=== PATIENT | male | born 1965 | race African-American/Black ===

== ENCOUNTER 2023-07-16 12:28 | Emergency (ER) | payer MEDICARE, MEDICAID, SELFPAY ==
[2023-07-16 12:29] VITALS: BP 116/99; PULSE 75; RESP 18; TEMP 36.3; O2SAT 100; BMI 30.5
--- NOTE | 2023-07-16 12:56 | EX.ED.UPPERE ---
HPI History of Present Illness HPI Narrative: Patient presents with right hand pain and that has been getting worse over the past several months. Patient denies any trauma or injury. Patient states his pain is constant but waxes and wanes. Patient states it is mainly over the second and fifth MCP joints of his right hand. Patient describes the pain as sharp. Patient states nothing makes it better nothing makes it worse. Patient denies any paresthesias or weakness. Chief Complaint: Upper Extremity Injury Informant: patient Onset/Context/Timing Onset: Month(s) Context: Gradual Onset Timing: Continuous and Waxes and wanes Quality of Pain: Sharp Location: Right hand, second and fifth MCP joints Worsened by: Nothing Relieved by: Nothing Associated Symptoms Associated Symptoms: Negative for Parasthesia, Weakness or Loss of Funtion PFSH PFSH Medical History (Updated 07/16/23 @ 13:[address] Dajuan Danielle DO) Arthritis Diabetic neuropathy Gout Occasional tremors Parkinsons disease Type 2 diabetes mellitus Home Medications hydrocodone-acetaminophen 5-325mg 5mg-325mg 1 tab PO Q6H PRN PRN Pain 3 days #10 TABLETS 07/16/23 [Rx Last Taken Unknown] Allergy/AdvReac Type Severity Reaction Status Date / Time lactose AdvReac Intermediate Upset Verified 07/16/23 12:32 Stomach prochlorperazine AdvReac Intermediate Chest Verified 07/16/23 12:32 [From Compazine] tightness sumatriptan [From Imitrex] AdvReac Intermediate Nausea/Vom/ Verified 07/16/23 12:32 Diarrhea Surgical History Hx of appendectomy Social History Smoking Status: Never smoker ROS ROS ED Constitutional Constitutional ED: Denies chills or fever(s) Eyes Eyes: Denies blurry vision or change in vision ENT ENT ED: Denies rhinorrhea or sore throat Cardiovascular Cardiovascular: Denies chest pain or palpitations Respiratory/Chest Respiratory/Chest: Denies cough or dyspnea Gastrointestinal Gastrointestinal: Denies nausea or vomiting Genitourinary Genitourinary ED: Denies dysuria or hematuria Musculoskeletal Musculoskeletal: Reports back pain; Denies neck pain Integumentary Denies abscess or rash Neurologic Neurologic: Denies headache(s) or weakness Allergic/Immunologic Allergic/Immunologic ED: Denies mouth swelling or urticaria EXAM Physical Exam Const Vital Signs: 07/16/23 12:29 Temperature 97.3 F L Temperature Source Temporal Pulse Rate 75 Respiratory Rate 18 Blood Pressure 116/99 H Blood Pressure Mean 104 Pulse Ox 100 Oxygen Delivery Method Room Air Positive well nourished and well developed General Appearance ED: well developed and NAD HEENT Reports moist mucous membranes Neck full ROM and supple Extremity Extremity Narrative: There is tenderness and mild edema over the right second and fifth MCP joints. There is no obvious deformity noted. There is no erythema or warmth. Range of motion was limited in all motions of the MCP joints of the right hand secondary to pain. Sensation was intact to light touch in all digits. Capillary refill is less than 2 seconds in all digits. Strength is 5/5 in the radial, median, and ulnar areas. Neuro oriented x3, CN's II-XII intact bilaterally, moves all extremities, no focal motor deficits and no sensory deficits noted Sensorium / Orientation: alert Motor Exam: strength 5/5 throughout MDM MDM MDM Narrative Medical decision making narrative: Patient was advised that this is likely an inflammatory arthritis. Patient was advised that the limited to definitively diagnose his gout is to do a needle aspiration and send the fluid for crystal analysis. I informed the patient that this would not change the treatment today. He does not want this done at this time. Patient was given a prescription for a short course of [place]. Patient was instructed to ice and elevate the right hand. Patient was instructed to follow-up with his primary care physician in 5 to 7 days for reevaluation. Patient understood and was agreeable with the plan. All questions were answered. Discharge Plan Triage Chief Complaint: Upper Extremity Injury ED Provider: Dajuan Danielle Dx/Rx/DC Orders Clinical Impression: Right hand pain, Inflammatory arthritis Instructions: ED Gout, ED Pain, Acute, Uncertain Cause, ED Gout Diet Prescriptions: New hydrocodone-acetaminophen [hydrocodone-acetaminophen] 5-325 mg tablet 1 tab PO Q6H PRN PRN (Reason: Pain) 3 Days Qty: 10 0RF Referrals: Doctor,Your [Non-Staff] - 5-7 Days Disposition Disposition: Home, Self Care
[2023-07-16 13:24] VITALS: BP 136/116; PULSE 86; RESP 18; O2SAT 97
== END 2023-07-16 13:30 | disposition home or self-care (01) ==
LOC: ED 13:33
PROVIDERS: Emergency Provider Emergency Medicine; Visit Provider Emergency Medicine
DX: M79.641 Pain in right hand (principal); M06.4 Inflammatory polyarthropathy; E11.9 Type 2 diabetes mellitus without complications
CPT/HCPCS: 99282

== ENCOUNTER 2025-02-05 21:26 | Emergency (ER) | payer MEDICARE, MEDICAID, SELFPAY ==
[2025-02-05 21:29] VITALS: BP 120/90; PULSE 66; RESP 18; TEMP 36.6; O2SAT 100; BMI 28.6
--- NOTE | 2025-02-05 21:57 | EX.ED.DYSGE1 ---
HPI <Dr. Sean Justin DO - Last Filed: 02/15/25 16:56> History of Present Illness Chief Complaint: Other, Pain/Inj Informant: patient and family Narrative Narrative: Patient here with son for evaluation pain right side torso more flank region for the past 10 days. States history of Parkinson disease with tremors, had brain stimulator replaced at [place] a month ago. He states he had left-sided chest pain 10 days ago went to [place] ED workup was negative. He went home he said he had evaluated emesis well because no biting his tongue. This caused bleeding. That has resolved since then. With the vomiting he started having pain on his right side. Been using Tylenol. This has been constant. He has not been seen for this in the last 10 days. States urine is darker. He states he does have broken ribs from coughing hard in the past. Denies history of kidney stones. Prior similar symptoms: No PFSH <Dr. Sean Justin DO - Last Filed: 02/15/25 16:56> [facility] Medical History (Updated 02/14/25 @ 00:01 by Adam Sampson) Parkinson disease with use of electrical brain stimulation Arthritis Diabetic neuropathy Type 2 diabetes mellitus Gout Occasional tremors Parkinsons disease Home Medications ?Medication ?Instructions ?Recorded ?Last Taken ?Type hydrocodone-acetaminophen 5-325mg 1 tab PO Q6H PRN PRN Pain 3 days 07/16/23 Unknown Rx 5mg-325mg #10 TABLETS diazepam 5 mg tablet 5 mg PO Q8 PRN Muscle Spasm #20 02/05/25 Unknown Rx tabs oxycodone-acetaminophen 5 mg-325 1 tab PO Q6H PRN PRN Pain 3 days 02/05/25 Unknown Rx mg tablet #12 TABLETS Allergy/AdvReac Type Severity Reaction Status Date / Time lactose AdvReac Intermediate Upset Verified 02/05/25 21:29 Stomach prochlorperazine (From AdvReac Intermediate Chest Verified 02/05/25 21:29 Compazine) tightness sumatriptan (From Imitrex) AdvReac Intermediate Nausea/Vom/ Verified 02/05/25 21:29 Diarrhea Surgical History Hx of appendectomy Social History Smoking Status: Never smoker ROS <Dr. Sean Justin, DO - Last Filed: 02/15/25 16:56> ROS ED Constitutional Constitutional ED: Denies chills, fever(s) or sweats ENT ENT ED: Denies sore throat Cardiovascular Cardiovascular: Denies chest pain, leg edema, palpitations or racing heartbeat Respiratory/Chest Respiratory/Chest: Denies cough, dyspnea or dyspnea on exertion Gastrointestinal Gastrointestinal: Denies abdominal pain, diarrhea, nausea or vomiting Genitourinary Genitourinary ED: Reports urinary frequency; Denies dysuria or hematuria Musculoskeletal Musculoskeletal: Reports back pain; Denies extremity pain or neck pain Integumentary Denies rash or wounds Neurologic Neurologic: Denies headache(s), paresthesias or weakness EXAM <Dr. Sean Justin, DO - Last Filed: 02/15/25 16:56> Physical Exam Const Vital Signs: 02/05/25 21:29 02/05/25 22:21 02/05/25 23:50 Temperature 97.9 F Temperature Source Oral Pulse Rate 66 79 Respiratory Rate 18 18 Respiratory Effort Normal Non-Labored Respiratory Pattern Normal Blood Pressure 120/90 H 122/85 H Blood Pressure Mean 100 97 Pulse Ox 100 998 Oxygen Delivery Method Room Air Room Air Positive well nourished and well developed Constitutional Narrative: Uncomfortable intermittent twitching due to pain. General Appearance ED: well developed HEENT Reports moist mucous membranes normocephalic and atraumatic Eyes General Eye ED: Yes normal appearance of both eyes Neck full ROM Chest Wall Chest: Negative for tenderness Resp normal respiratory effort and normal air movement Effort and Inspection: symmetric chest movement; Negative for respiratory distress Cardio regular rate, regular rhythm and no murmurs Peripheral Pulses: pulses 2+ throughout GI normal to inspection, nondistended, normoactive bowel sounds and non-tender GI Narrative: Negative Jara's or McBurney's tenderness. Palpation: Negative for guarding or rebound tenderness present Back/Spine Back/Spine Narrative: Tender palpation right flank posterior lower rib region. No rash. Extremity normal to inspection General Extremety ED: Negative for edema or tenderness General Extremity: Negative for edema Neuro oriented x3 and no sensory deficits noted Sensorium / Orientation: awake and alert Skin no rashes or lesions noted and no wounds <Dr. Edil Harris, DO - Last Filed: 02/06/25 00:32> Physical Exam Const Vital Signs: 02/05/25 21:29 02/05/25 22:21 02/05/25 23:50 Temperature 97.9 F Temperature Source Oral Pulse Rate 66 79 Respiratory Rate 18 18 Respiratory Effort Normal Non-Labored Respiratory Pattern Normal Blood Pressure 120/90 H 122/85 H Blood Pressure Mean 100 97 Pulse Ox 100 998 Oxygen Delivery Method Room Air Room Air MDM <Dr. Sean Justin, DO - Last Filed: 02/15/25 16:56> MDM MDM Narrative Medical decision making narrative: Interventions / MDM: Differential diagnosis: Right flank pain, muscle spasms, kidney stones, rib fracture, pulm embolism My EKG interpretation: N/A Imaging independently reviewed and interpreted by myself: CT abdomen pelvis: No kidney stones, right lower posterior rib fracture. External documents reviewed: N/A Test considered but not ordered:N/A ED course: Pain flank region and lower posterior ribs. Recent surgery a month ago. IV will be established for lab work and urine. Morphine for symptom control. Will check D-dimer. Will plan to CT. 2240: Much more comfortable at this time. Awaiting lab results. 2300: D-dimer negative. White count 5.3 hemoglobin 12.6 platelets 286. Normal creatinine 0.97. Patient sent for a noncontrast CT abdomen pelvis for further evaluation. 2310: CT scan per myself no kidney stones, there is concerns for posterior rib fracture behind his right kidney. Will await final read. Awaiting urine results. Re-evaluation: stable Disposition discussed with patient/family/significant other: Patient Case discussed with consulting clinician: N/A This note was generated with [employer] dictation software. It may contain incorrect words, spelling, and punctuation that were not noted in checking the note before signing. Lab Data Attestation: I reviewed the patient's lab results. Labs: Laboratory Results - last 24 hr 02/05/25 02/05/25 02/05/25 22:13 22:13 22:53 WBC Cancelled 5.3 Corrected WBC Cancelled RBC Cancelled 4.84 Hgb Cancelled 12.6 L Hct Cancelled 38.2 L MCV Cancelled 78.9 L MCH Cancelled 26.0 L MCHC Cancelled 33.0 RDW Std Deviation Cancelled 39.8 RDW Coeff of Ernesto Cancelled 13.9 Plt Count Cancelled 278 MPV Cancelled 10.9 Immature Gran % (Auto) Cancelled 0.400 Neut % (Auto) Cancelled 37.1 L Lymph % (Auto) Cancelled 49.1 H [place] % (Auto) Cancelled 12.1 H Eos % (Auto) Cancelled 0.9 Baso % (Auto) Cancelled 0.4 Absolute Neuts (auto) Cancelled 2.0 Absolute Lymphs (auto) Cancelled 2.60 Total Counted Cancelled Neutrophils % (Manual) Cancelled Band Neutrophils % Cancelled Lymphocytes % (Manual) Cancelled Monocytes % (Manual) Cancelled Eosinophils % (Manual) Cancelled Basophils % (Manual) Cancelled Metamyelocytes % Cancelled Myelocytes % Cancelled Promyelocytes % Cancelled Blast Cells % Cancelled Plasma Cell % (Manual) Cancelled Other Cells % Cancelled Nucleated RBC % Cancelled 0 Nucleated RBCs/100 WBC Cancelled Differential Comment Cancelled Diff Path Review Cancelled Hypersegmented Neuts Cancelled Atypical Lymphocytes Cancelled Reactive Lymphocytes Cancelled Smudge Cells Cancelled Toxic Granulation Cancelled Toxic Vacuolation Cancelled Dohle Bodies Cancelled Chanda Rods Cancelled Platelet Estimate Cancelled Plt Morphology Comment Cancelled RBC Morphology Cancelled Cancelled Polychromasia Cancelled Hypochromasia Cancelled Basophilic Stippling Cancelled Anisocytosis Cancelled Microcytosis Cancelled Macrocytosis Cancelled Spherocytes Cancelled Sickle Cells Cancelled Target Cells Cancelled Tear Drop Cells Cancelled Ovalocytes Cancelled Stomatocytes Cancelled Driscoll-Arion Bodies Cancelled [place] Cells Cancelled Bite Cells Cancelled Crenated Cell Cancelled Acanthocytes (Spur) Cancelled Rouleaux Cancelled Schistocytes Cancelled D-Dimer Quant (PE/DVT) 0.44 Sodium 136 Potassium 4.0 Chloride 101 Carbon Dioxide 20.3 L Anion Gap 14 BUN 7 Creatinine 0.97 Estim Creat Clear Calc 95.16 Est GFR (MDRD) Non-Af 91 BUN/Creatinine Ratio 7.4 L Glucose 108 H Calcium 9.3 Urine Color Urine Clarity Urine pH Ur Specific [place] Urine Protein Urine Glucose (UA) Urine Ketones Urine Occult Blood Urine Nitrite Urine Bilirubin Urine Urobilinogen Ur Leukocyte Esterase Urine RBC Urine WBC Ur Squamous Epith Cells Urine Bacteria Urine Mucus 02/05/25 22:59 WBC Corrected WBC RBC Hgb Hct MCV MCH MCHC RDW Std Deviation RDW Coeff of Ernesto Plt Count MPV Immature Gran % (Auto) Neut % (Auto) Lymph % (Auto) [place] % (Auto) Eos % (Auto) Baso % (Auto) Absolute Neuts (auto) Absolute Lymphs (auto) Total Counted Neutrophils % (Manual) Band Neutrophils % Lymphocytes % (Manual) Monocytes % (Manual) Eosinophils % (Manual) Basophils % (Manual) Metamyelocytes % Myelocytes % Promyelocytes % Blast Cells % Plasma Cell % (Manual) Other Cells % Nucleated RBC % Nucleated RBCs/100 WBC Differential Comment Diff Path Review Hypersegmented Neuts Atypical Lymphocytes Reactive Lymphocytes Smudge Cells Toxic Granulation Toxic Vacuolation Dohle Bodies Chanda Rods Platelet Estimate Plt Morphology Comment RBC Morphology Polychromasia Hypochromasia Basophilic Stippling Anisocytosis Microcytosis Macrocytosis Spherocytes Sickle Cells Target Cells Tear Drop Cells Ovalocytes Stomatocytes Driscoll-Arion Bodies Jac Cells Bite Cells Crenated Cell Acanthocytes (Spur) Rouleaux Schistocytes D-Dimer Quant (PE/DVT) Sodium Potassium Chloride Carbon Dioxide Anion Gap BUN Creatinine Estim Creat Clear Calc Est GFR (MDRD) Non-Af BUN/Creatinine Ratio Glucose Calcium Urine Color Yellow Urine Clarity Sl. Cloudy Urine pH 6.0 Ur Specific [place] 1.020 Urine Protein 30 H Urine Glucose (UA) Normal Urine Ketones 5 H Urine Occult Blood Negative Urine Nitrite Negative Urine Bilirubin Negative Urine Urobilinogen 1 H Ur Leukocyte Esterase 25 H Urine RBC 0 SEEN Urine WBC 0 SEEN Ur Squamous Epith Cells 0 SEEN Urine Bacteria 0 SEEN Urine Mucus 2+ Radiography Diagnostic Testing: Clinical Impression(s) from Imaging Studies Abdomen/Pelvis CT 02/05/25 22:49 IMPRESSION: No acute findings in the abdomen or pelvis. No renal calculi or hydronephrosis. Reading Location: [facility] <Dr. Edil Harris, DO - Last Filed: 02/06/25 00:32> [facility] Lab Data Labs: Laboratory Results - last 24 hr 02/05/25 02/05/25 02/05/25 22:13 22:13 22:53 WBC Cancelled 5.3 Corrected WBC Cancelled RBC Cancelled 4.84 Hgb Cancelled 12.6 L Hct Cancelled 38.2 L MCV Cancelled 78.9 L MCH Cancelled 26.0 L MCHC Cancelled 33.0 RDW Std Deviation Cancelled 39.8 RDW Coeff of Ernesto Cancelled 13.9 Plt Count Cancelled 278 MPV Cancelled 10.9 Immature Gran % (Auto) Cancelled 0.400 Neut % (Auto) Cancelled 37.1 L Lymph % (Auto) Cancelled 49.1 H [place] % (Auto) Cancelled 12.1 H Eos % (Auto) Cancelled 0.9 Baso % (Auto) Cancelled 0.4 Absolute Neuts (auto) Cancelled 2.0 Absolute Lymphs (auto) Cancelled 2.60 Total Counted Cancelled Neutrophils % (Manual) Cancelled Band Neutrophils % Cancelled Lymphocytes % (Manual) Cancelled Monocytes % (Manual) Cancelled Eosinophils % (Manual) Cancelled Basophils % (Manual) Cancelled Metamyelocytes % Cancelled Myelocytes % Cancelled Promyelocytes % Cancelled Blast Cells % Cancelled Plasma Cell % (Manual) Cancelled Other Cells % Cancelled Nucleated RBC % Cancelled 0 Nucleated RBCs/100 WBC Cancelled Differential Comment Cancelled Diff Path Review Cancelled Hypersegmented Neuts Cancelled Atypical Lymphocytes Cancelled Reactive Lymphocytes Cancelled Smudge Cells Cancelled Toxic Granulation Cancelled Toxic Vacuolation Cancelled Dohle Bodies Cancelled Chanda Rods Cancelled Platelet Estimate Cancelled Plt Morphology Comment Cancelled RBC Morphology Cancelled Cancelled Polychromasia Cancelled Hypochromasia Cancelled Basophilic Stippling Cancelled Anisocytosis Cancelled Microcytosis Cancelled Macrocytosis Cancelled Spherocytes Cancelled Sickle Cells Cancelled Target Cells Cancelled Tear Drop Cells Cancelled Ovalocytes Cancelled Stomatocytes Cancelled Driscoll-Arion Bodies Cancelled Jac Cells Cancelled Bite Cells Cancelled Crenated Cell Cancelled Acanthocytes (Spur) Cancelled Rouleaux Cancelled Schistocytes Cancelled D-Dimer Quant (PE/DVT) 0.44 Sodium 136 Potassium 4.0 Chloride 101 Carbon Dioxide 20.3 L Anion Gap 14 BUN 7 Creatinine 0.97 Estim Creat Clear Calc 95.16 Est GFR (MDRD) Non-Af 91 BUN/Creatinine Ratio 7.4 L Glucose 108 H Calcium 9.3 Urine Color Urine Clarity Urine pH Ur Specific [place] Urine Protein Urine Glucose (UA) Urine Ketones Urine Occult Blood Urine Nitrite Urine Bilirubin Urine Urobilinogen Ur Leukocyte Esterase Urine RBC Urine WBC Ur Squamous Epith Cells Urine Bacteria Urine Mucus 02/05/25 22:59 WBC Corrected WBC RBC Hgb Hct MCV MCH MCHC RDW Std Deviation RDW Coeff of Ernesto Plt Count MPV Immature Gran % (Auto) Neut % (Auto) Lymph % (Auto) [place] % (Auto) Eos % (Auto) Baso % (Auto) Absolute Neuts (auto) Absolute Lymphs (auto) Total Counted Neutrophils % (Manual) Band Neutrophils % Lymphocytes % (Manual) Monocytes % (Manual) Eosinophils % (Manual) Basophils % (Manual) Metamyelocytes % Myelocytes % Promyelocytes % Blast Cells % Plasma Cell % (Manual) Other Cells % Nucleated RBC % Nucleated RBCs/100 WBC Differential Comment Diff Path Review Hypersegmented Neuts Atypical Lymphocytes Reactive Lymphocytes Smudge Cells Toxic Granulation Toxic Vacuolation Dohle Bodies Chanda Rods Platelet Estimate Plt Morphology Comment RBC Morphology Polychromasia Hypochromasia Basophilic Stippling Anisocytosis Microcytosis Macrocytosis Spherocytes Sickle Cells Target Cells Tear Drop Cells Ovalocytes Stomatocytes Driscoll-Arion Bodies [place] Cells Bite Cells Crenated Cell Acanthocytes (Spur) Rouleaux Schistocytes D-Dimer Quant (PE/DVT) Sodium Potassium Chloride Carbon Dioxide Anion Gap BUN Creatinine Estim Creat Clear Calc Est GFR (MDRD) Non-Af BUN/Creatinine Ratio Glucose Calcium Urine Color Yellow Urine Clarity Sl. Cloudy Urine pH 6.0 Ur Specific [place] 1.020 Urine Protein 30 H Urine Glucose (UA) Normal Urine Ketones 5 H Urine Occult Blood Negative Urine Nitrite Negative Urine Bilirubin Negative Urine Urobilinogen 1 H Ur Leukocyte Esterase 25 H Urine RBC 0 SEEN Urine WBC 0 SEEN Ur Squamous Epith Cells 0 SEEN Urine Bacteria 0 SEEN Urine Mucus 2+ Radiography Diagnostic Testing: Clinical Impression(s) from Imaging Studies Abdomen/Pelvis CT 02/05/25 22:49 IMPRESSION: No acute findings in the abdomen or pelvis. No renal calculi or hydronephrosis. Reading Location: [facility] Treatment and Re-Evaluation :: Patient was signed out to me while awaiting the official CT result. CT result did not reveal any acute internal abdominal pathology such as infection obstruction or kidney stone. On reevaluation the patient's vitals are stable and his pain is controlled. Therefore there is no need for further workup at this time and he is otherwise safe for discharge. Discharge Plan Triage Chief Complaint: Other, Pain/Inj ED Provider: Sean Justin Dx/Rx/DC Orders Clinical Impression: Right rib fracture, Muscle spasm Instructions: ED Rib Fracture, ED Muscle Spasm Prescriptions: New oxycodone-acetaminophen 5-325 mg tablet 1 tab PO Q6H PRN PRN (Reason: Pain) 3 Days Qty: 12 0RF diazepam [diazepam] 5 mg tablet 5 mg PO Q8 PRN (Reason: Muscle Spasm) Qty: 20 0RF No Action hydrocodone-acetaminophen [hydrocodone-acetaminophen] 5-325 mg tablet 1 tab PO Q6H PRN PRN (Reason: Pain) 3 Days Qty: 10 0RF Primary Care Provider: Care Physician,No Primary Referrals: Care Physician,No Primary [Primary Care Provider] - Activity Restrictions/Additional Instructions: Right posterior rib fracture seen on CT. Use muscle relaxers as needed. Pain medicines as needed. No driving while taking these medications. Follow-up with your doctor. Print Language: [place]i Disposition Disposition: Home, Self Care Discharge Date/Time: 02/06/25 01:08
[2025-02-05] MEDS: Morphine 4 MG/ML Syringe IV (22:12)
[2025-02-05] MEDS: 0.9% Normal Saline (500mL Bag) 500 ML 1000 ML IV (22:12)
--- NOTE | 2025-02-05 22:32 | ED.RN ---
At approximately 21:28 this nurse tech walked into the room to place the patient in a gown. The patient's family member said to this nurse tech, You are one handsome motherf. This nurse tech asked the family member to keep comments like that to himself.
[2025-02-05 22:42] LABS: D-Dimer Quantitative (DVT/PE) 0.44 FEU/ug/m (0.27-0.49)
--- NOTE | 2025-02-05 22:49 | CT_ITS ---
PROCEDURE: ABDOMEN/PELVIS WITHOUT CONT 02/05/2025 REASON FOR EXAM: RIGHT FLANK PAIN TECHNIQUE: Abdomen CT without and with intravenous contrast. Coronal and Sagittal reconstruction series were provided. PATIENT PREPARATION: Per protocol ORAL CONTRAST TYPE: None. AMOUNT: mL One or more dose reduction techniques were used (e.g., Automated exposure control, adjustment of the mA and/or kV according to patient size, use of iterative reconstruction technique. COMPARISON: None FINDINGS: Lung bases: Mild dependent atelectasis Liver: Normal size. No mass. Gallbladder: No cholelithiasis or wall thickening. Spleen: Normal size. Multiple splenic granulomas. Pancreas: Normal size without evidence of mass surrounding inflammation or ductal dilation. Adrenals: Unremarkable Kidneys: 14 mm right inferior pole simple cyst. No calculi or hydronephrosis. Bladder: Decompressed urinary bladder. Reproductive Organs: No pelvic mass. Bowel: Stomach is unremarkable. No bowel dilation or wall thickening. Moderate colonic stool. Appendix: The appendix is not identified. There is no inflammatory process identified in the right lower quadrant to suggest appendicitis. Lymph nodes: Unremarkable. Vasculature: Mild diffuse atherosclerotic calcifications are noted. Peritoneum / Retroperitoneum: No ascites or pneumoperitoneum. Bones: No significant degenerative changes. CT/Abdomen/Pelvis without Cont IMPRESSION: No acute findings in the abdomen or pelvis. No renal calculi or hydronephrosis. Reading Location: [facility]
[2025-02-05 22:59] LABS: Basophil# 0.02 X10^3/uL; Basophil% 0.4 % (0-1); Eosinophil# 0.05 X10^3/uL; Eosinophils% 0.9 % (0-5); Hematocrit 38.2 % (40-54); Hemoglobin 12.6 g/dL (13.0-16.5); Lymphocyte % 49.1 % (19-41); Mean Corpuscular Volume 78.9 fL (80-94); Mean Platelet Vol. 10.9 fl (6.2-12.0); Monocyte# 0.64 X10^3/uL; Monocyte% 12.1 % (0-10); NRBC Flagged by Analyzer 0 % (0-5); Neutrophil # 1.97 X10^3/uL (2.7-7.7); Neutrophil % 37.1 % (47-70); Platelet Count 278 K/mm3 (150-450); RBC Distribution Width CV 13.9 % (11.6-14.6); RBC Distribution Width SD 39.8 fl (35.1-43.9); Red Blood Count 4.84 M/mm3 (4.6-6.2); White Blood Count 5.3 K/mm3 (4.4-11.0)
[2025-02-05 23:01] LABS: Anion Gap 14 (5-15); BUN 7 mg/dL (4-19); BUN/Creat Ratio 7.4 RATIO (10-20); Calcium,Total 9.3 mg/dL (7.6-11.0); Carbon Dioxide 20.3 mmol/L (21.0-32.0); Chloride 101 mmol/L (98-108); Creatinine, Serum 0.97 mg/dL (0.70-1.20); EST Glomerular Filtration Rate 91 (>60); Estimated Creatinine Clearance 95.16 ml/min (50-250); Glucose 108 mg/dL (70-99); Sodium Level 136 mmol/L (133-145)
[2025-02-05 23:10] LABS: Bacteria 0 SEEN /hpf (None Seen); Squamous Epithelial Cells - UA 0 SEEN /hpf (0-5); White Blood Cells 0 SEEN /hpf (0-5)
[2025-02-05 23:18] LABS: Color, Urine Yellow (Yellow); Glucose, Dipstick Normal (Normal); Ketone-Dipstick 5 mg/dl (Negative); Leukocyte Esterase-Dipstick 25 /ul (Negative); Nitrite-Dipstick Negative (Negative); Occult Blood-Urine Negative /ul (Negative); Protein-Dipstick 30 mg/dl (Negative); Urine Bilirubin Dipstick Negative (Negative); Urine Clarity Sl. Cloudy (Clear); Urine Urobilinogen 1 mg/dl (Normal)
[2025-02-05 23:31] LABS: Mucous, Urine 2+ /hpf (<or=2+); Red Blood Cells-Urine 0 SEEN /hpf (0-5)
[2025-02-05] MEDS: diazePAM 5 MG Tablet PO (23:49)
[2025-02-05 23:50] VITALS: BP 122/85; PULSE 79; RESP 18; O2SAT 998
[2025-02-06 00:33] VITALS: BP 114/63; PULSE 68; RESP 18; TEMP 36.8; O2SAT 97
== END 2025-02-06 01:08 | disposition home or self-care (01) ==
PROVIDERS: Emergency Provider Emergency Medicine; Visit Provider Emergency Medicine
DX: S22.31XA Fracture of one rib, right side, initial encounter for closed fracture (principal); G20.C Parkinsonism, unspecified; E11.9 Type 2 diabetes mellitus without complications; M62.838 Other muscle spasm; X58.XXXA Exposure to other specified factors, initial encounter
CPT/HCPCS: 74176; 80048; 81001; 85025; 85379; 96361; 96374; 99283; A4216